=== PATIENT | male | born 1960 | race Two or more races ===

== ENCOUNTER → 2017-07-19 | Outpatient (CLI) | payer OTHER, MEDICAID ==
[~2017-07-19] VITALS: Ht 30.5 cm; Wt 0.5 kg
[~2017-07-19] MED LIST: ADENOSINE 90 MG/30 ML INJ IV ONE; ADENOSINE 95 MG in GIVE UN-DILUTED 0 ML IV ONE
== END | disposition home or self-care (01) ==
LOC: Rad HDHVI 08:02
PROVIDERS: ATTEND Internal Medicine Cardiovascular Disease
DX: I10 Essential (primary) hypertension (principal); E78.00 Pure hypercholesterolemia, unspecified; E11.9 Type 2 diabetes mellitus without complications; R06.02 Shortness of breath; I20.8 Other forms of angina pectoris
CPT/HCPCS: 78452; 93005; 93306; 96374; 96375; A9500; J0153